=== PATIENT | female | born 1955 | race Caucasian/White ===

== ENCOUNTER 2021-05-21 12:32 | Emergency (ER) | payer MEDICARE ==
[~2021-05-21] VITALS: Ht 170.2 cm; Wt 68.0 kg
[2021-05-21 13:50] LABS: HEMOGLOBIN 14.6 gm/dl (12.3-15.3); RED BLOOD COUNT 4.25 M/UL (4.00-5.10); WHITE BLOOD COUNT 6.1 K/UL (4.5-11.0)
[2021-05-21 14:18] LABS: BUN/CREATININE RATIO 17 (0-10)
== END 2021-05-21 18:10 | disposition home or self-care (01) ==
LOC: ER1 12:32
PROVIDERS: Physician Assistant
DX: Z23 Encounter for immunization (principal); U07.1 COVID-19; F17.200 Nicotine dependence, unspecified, uncomplicated; Z90.89 Acquired absence of other organs
CPT/HCPCS: 71045; 80053; 82550; 82553; 83874; 84484; 85025; 93005; 99285; M0243; U0002

== ENCOUNTER 2022-06-18 16:19 | Emergency (ER) | payer MEDICARE ==
[2022-06-18 17:15] LABS: HEMOGLOBIN 12.9 gm/dl (12.3-15.3); RED BLOOD COUNT 3.64 M/UL (4.00-5.10)
[2022-06-18 17:39] LABS: BUN/CREATININE RATIO 20 (0-10)
[2022-06-18] MEDS ORDERED: HYDROCODON-ACE1 EAC4 PO (20:05)
[2022-06-18] MEDS ORDERED: ANTI-ITCH28 GM TP (20:05)
[2022-06-18] MEDS ORDERED: OMNICEF 300 MG300 MG PO (20:05)
[2022-06-18] MEDS ORDERED: BACTRIM DS TAB1 EACH PO (20:05)
== END 2022-06-18 20:33 | disposition home or self-care (01) ==
LOC: ER1 16:19
DX: L03.116 Cellulitis of left lower limb (principal); L03.115 Cellulitis of right lower limb; F17.210 Nicotine dependence, cigarettes, uncomplicated; Z85.3 Personal history of malignant neoplasm of breast; Z88.0 Allergy status to penicillin
CPT/HCPCS: 80053; 81001; 82550; 82553; 83605; 83880; 84484; 85025; 86140; 93005; 99283